=== PATIENT | female | born 1995 | race African-American/Black ===

== ENCOUNTER 2017-07-18 09:55 | Emergency (ER) | payer OTHER ==
[~2017-07-18] VITALS: Ht 177.8 cm; Wt 105.7 kg
[~2017-07-18 09:55] MED LIST: CIPROFLOXACIN500 M1 PO; IBUPROFEN 800800 MG PO; NORCO 5-325 TA1 EACH PO
[2017-07-18] MEDS ORDERED: ONDANSETRON HCL4 M2 PO (12:11)
[2017-07-18 12:20] VITALS: BP 116/63
== END 2017-07-18 12:20 | disposition home or self-care (01) ==
LOC: ER 09:55
DX: Z32.01 Encounter for pregnancy test, result positive (principal); Z98.890 Other specified postprocedural states

== ENCOUNTER 2020-02-14 17:14 | Emergency (ER) | payer OTHER ==
[~2020-02-14] VITALS: Ht 180.3 cm; Wt 101.2 kg
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
[~2020-02-14 17:14] MED LIST changes: +ONDANSETRON HCL4 M2 PO
[2020-02-14 19:18] VITALS: BP 119/71
[2020-02-14] MEDS ORDERED: MOBIC15 MG PO (19:27)
[2020-02-14] MEDS ORDERED: NORCO 5-325 TA1 EAC1 PO (19:27)
== END 2020-02-14 19:51 | disposition home or self-care (01) ==
LOC: ER 17:14
DX: M54.2 Cervicalgia (principal); M25.511 Pain in right shoulder; M54.9 Dorsalgia, unspecified; M79.652 Pain in left thigh; M25.562 Pain in left knee; F41.9 Anxiety disorder, unspecified; Z90.89 Acquired absence of other organs; V89.2XXA Person injured in unspecified motor-vehicle accident, traffic, initial encounter; Y93.89 Activity, other specified; Y92.488 Other paved roadways as the place of occurrence of the external cause; Y99.8 Other external cause status